=== PATIENT | male | born 1990 | race Caucasian/White ===

== ENCOUNTER 2017-05-10 18:18 | Emergency (ER) | payer BC ==
[~2017-05-10] VITALS: Ht 188 cm; Wt 77.3 kg
[~2017-05-10 18:18] MED LIST: LORTAB 7.5/5001 TAB PO; NO HOME MEDICATIONS
[2017-05-10 18:27] VITALS: TEMP 98.6
[2017-05-10 20:29] LABS: BASO % 0.3 % (0.0-2.0); EOS # 0.1 (0.0-0.7); EOS % 1.6 % (0-4.0); GRAN # 1.9 (1.4-6.5); GRAN % 49.8 % (42.2-75.2); HEMATOCRIT 41.8 % (42.0-52.0); HEMOGLOBIN 14.9 g/dl (13.5-18.0); LYMPH # 1.1 (1.2-3.4); LYMPH % 29.9 % (20.0-51.0); MEAN CELL VOLUME 89 fl (80.0-100.0); MEAN CORPUSCULAR HEMOGLOBIN 32 pg (27.0-31.0); MEAN CORPUSCULAR HGB CONC 36 g/dl (33.0-37.0); MEAN PLATELET VOLUME 9.6 fl (7.4-10.4); MONO # 0.7 (0.1-0.6); MONO % 18.1 % (1.7-9.3); PLATELET COUNT 171 K/mm3 (130-400); RED BLOOD COUNT 4.71 M/mm3 (4.20-5.60); REDCELL DISTRIBUTION WIDTH-CV 12.5 % (11.5-14.5)
[2017-05-10 20:37] LABS: PROTHROMBIN TIME 11.8 SECONDS (9.7-12.8)
[2017-05-10 22:03] VITALS: BP 122/86; PULSE 81
== END 2017-05-10 22:03 | disposition home or self-care (01) ==
LOC: COL.ER 18:18
PROVIDERS: Emergency Medicine
DX: R04.0 Epistaxis (principal); F17.210 Nicotine dependence, cigarettes, uncomplicated